=== PATIENT | female | born 1930 | race Caucasian/White ===

== ENCOUNTER 2020-03-20 23:02 | Inpatient (IN) | payer MEDICARE, OTHER ==
[~2020-03-20] VITALS: Ht 162.6 cm; Wt 52.6 kg
[~2020-03-20 23:02] MED LIST: ALEN70TA3 PO; ASPI-605 PO; CRAN450C PO; CYAN250T6 PO; ERGO400C PO; FOLI1TAB16 PO; GABA600T12 PO; LEVO50TA8 PO; MULT1TAB73 PO
[2020-03-20] MEDS ORDERED: IV NS 0.9% 1,000 ML BAG IV ONE (23:30)
[2020-03-20] MEDS ORDERED: ACETAMINOPHEN 650 MG/SUPP.RECT RC ONE ×2 (23:30→23:33)
[2020-03-20 23:31] LABS: BASOPHILS # (AUTO) 0.1 /CMM (0.0-0.2); BASOPHILS % (AUTO) 0.5 % (0.0-2.0); HEMATOCRIT 29 % (33-45); HEMOGLOBIN 9.4 g/dL (11.5-14.8); LYMPHOCYTES # (AUTO) 0.8 /CMM (0.8-4.8); LYMPHOCYTES % (AUTO) 4.6 % (20.0-44.0); MEAN CORPUSCULAR HGB CONC 32 g/dl (31.0-36.0); MEAN CORPUSCULAR VOLUME 93 fL (82-100); MONOCYTES # (AUTO) 0.8 /CMM (0.1-1.30); MONOCYTES % (AUTO) 4.4 % (2.0-12.0); NEUTROPHILS % (AUTO) 90.5 % (43.0-81.0); PLATELET COUNT (AUTO) 465 /CMM (150-450); RED BLOOD CELL COUNT(AUTO) 3.12 MIL/uL (4.0-5.2); WHITE BLOOD COUNT (AUTO) 17.7 K/uL (4.3-11.0)
--- NOTE | 2020-03-20 23:35 | NUR ---
PATIENT CAME TO ER BED 5 C/O FEVER. PATIENT IS BED BOUND AND AAOX0. PATIENT HAS NECROTIC TOES LEFT 1ST AND 2ND TOE; RIGHT 3RD, 4TD, AND 5TH TOES. BREATHING EVENLY AND UNLABORED ON 12 L OF FACE MASK. CONNECTED TO MONITOR.
[2020-03-20 23:41] LABS: APPEARANCE,URINE Clear (CLEAR); BILIRUBIN,URINE SMALL (NEGATIVE); BLOOD, URINE Small Ery/uL (NEGATIVE); COLOR,URINE Yellow (YELLOW); KETONES,URINE Negative (NEGATIVE); LEUKOCYTE ESTERASE ,URINE Small (NEGATIVE); NITRITE, URINE Negative (NEGATIVE); PROTEIN,URINE 100 mg/dl (NEGATIVE); UGLUCOSE Negative (NEGATIVE); UROBILINOGEN,URINE 0.2 EU/dL (0.2)
--- NOTE | 2020-03-20 23:41 | NUR ---
XRAY AT BEDSIDE.
--- NOTE | 2020-03-20 23:43 | NUR ---
STEAM HAND AT BEDSIDE TO COLLECT URINE, BLOOD, AND CORONAVIRUS SWAB.
[2020-03-20 23:55] LABS: ALANINE AMINOTRANSFERASE 20 U/L (12-78); ALBUMIN 1.9 g/dL (3.4-5.0); ALKALINE PHOSPHATASE 157 U/L (46-116); ASPARTATE AMINOTRANSFERASE 27 U/L (15-37); B-TYPE NATRIURETIC PEPTIDE 3249 PG/ML (0-125); BILIRUBIN,DIRECT 0.1 mg/dL (0.0-0.2); BILIRUBIN,TOTAL 0.3 mg/dL (0.2-1.0); CALCIUM, SERUM 9.4 mg/dL (8.5-10.1); CARBON DIOXIDE 29 mmol/L (21-32); CHLORIDE 110 mmol/L (98-107); CREATININE 1.8 mg/dL (0.6-1.3); GLUCOSE 210 mg/dL (74-106); POTASSIUM 4.1 mmol/L (3.5-5.1); SODIUM SERUM 149 mmol/L (136-145); TOTAL PROTEIN, SERUM 7.7 g/dL (6.4-8.2)
[2020-03-20 23:56] LABS: UREA NITROGEN, BLOOD 83 mg/dL (7-18)
[2020-03-21] VITALS (7 sets, daily range): BP systolic 99–135; BP diastolic 46–85
--- NOTE | 2020-03-21 | NUR ---
DR. SANCHEZ ON THE PHONE WITH PT'S FAMILY REGARDING PLAN OF CARE
[2020-03-21 00:25] LABS: BACTERIA,URINE Many /HPF (None Seen); SQUAMOUS EPITHELIAL CELL,UR Few /HPF (None Seen); WBC,URINE TOO NUMEROUS TO COUN /HPF (0-3)
[2020-03-21] MEDS ORDERED: VANCOMYCIN 1 GM in IV D5W 250 ML IV ONE (00:30)
[2020-03-21] MEDS ORDERED: PIPERACILLIN /TAZOBACTAM 3.375 G in IV D5W 50 ML IV ONE ×2 (00:30→06:00)
[2020-03-21] MEDS ORDERED: VANCOMYCIN 1 GM VIAL ONE (00:31)
[2020-03-21] MEDS ORDERED: PIPERACILLIN /TAZOBACTAM 3.375 G VIAL IV ONE ×2 (00:31→05:13)
--- NOTE | 2020-03-21 01:10 | NUR ---
NOTIFIED OF 102.1 RECTAL TEMPERATURE.
--- NOTE | 2020-03-21 01:25 | NUR ---
REPORT GIVEN TO LINDSEY WILLS FOR MARIA.
[2020-03-21] MEDS ORDERED: MORPHINE SULFATE INJ 2 MG/ML DISP.SYRIN IV PRN (01:30)
[2020-03-21] MEDS ORDERED: ACETAMINOPHEN 650 MG/SUPP.RECT RC PRN (01:30)
[2020-03-21] MEDS ORDERED: GABAPENTIN 300 MG CAPSULE PO SCH (01:30)
[2020-03-21] MEDS ORDERED: Z GUARD REMEDY 2 OZ OINT TP PRN (01:30)
[2020-03-21] MEDS ORDERED: ONDANSETRON HCL/PF 4 MG/2 ML VIAL IVP PRN (01:30)
[2020-03-21] MEDS ORDERED: ALENDRONATE 70 MG TABLET PO SCH (01:30)
--- NOTE | 2020-03-21 01:35 | NUR ---
FOOD TRADES ASSISTANTS NOTES PATIENT ARRIVED ON FLOOR AT 0135. PATIENT NONVERBAL. BREATHING EVEN AND UNLABORED ON FACE MASK 12L. SHOWS NO SIGNS OF ACUTE RESPIRATORY DISTRESS, NO ACUTE PAIN. IV ON R HAND 20G ITS CLEAN DRY AND INTACT. SHOW NO SIGNS OF INFILTRATION, NO REDNESS. BELONGINGS CHECKLIST COMPLETED, AND SKIN ASSESSMENT DONE. SAFETY PRECAUTIONS IN PLACE. BED IN LOWEST POSITION, LOCKED, AND CALL LIGHT KEPT WITHIN REACH. WILL CONTINUE TO MONITOR.
[2020-03-21 02:45] LABS: C-REACTIVE PROTEIN 44.9 mg/dL (0.0-0.9)
--- NOTE | 2020-03-21 06:37 | NUR ---
CUSTOMS AND BORDER PROTECTION INSPECTOR NOTES PATIENT NONVERBAL. BREATHING EVEN AND UNLABORED ON FACE MASK 12L. SHOWS NO SIGNS OF ACUTE RESPIRATORY DISTRESS, NO ACUTE PAIN. IV ON R HAND 20G ITS CLEAN DRY AND INTACT. SHOW NO SIGNS OF INFILTRATION, NO REDNESS. TELE MONITOR AFIB. FC IS CLEAN DRY AND INTACT, 400ML OUTPUT. GTUBE IS CLEAN DRY AND INTACT. ALL DUE MEDICATIONS GIVEN. PT KEPT NPO. SAFETY PRECAUTIONS IN PLACE. BED IN LOWEST POSITION, LOCKED, AND CALL LIGHT KEPT WITHIN REACH. WILL ENDORSE TO ONCOMING NURSE.
[2020-03-21 06:47] LABS: BASOPHILS % (AUTO) 0.1 % (0.0-2.0); HEMATOCRIT 28 % (33-45); HEMOGLOBIN 8.9 g/dL (11.5-14.8); LYMPHOCYTES # (AUTO) 1.1 /CMM (0.8-4.8); LYMPHOCYTES % (AUTO) 5.9 % (20.0-44.0); MEAN CORPUSCULAR HGB CONC 32 g/dl (31.0-36.0); MEAN CORPUSCULAR VOLUME 93 fL (82-100); MONOCYTES # (AUTO) 0.9 /CMM (0.1-1.30); MONOCYTES % (AUTO) 4.7 % (2.0-12.0); NEUTROPHILS # (AUTO) 16.2 /CMM (1.8-8.9); NEUTROPHILS % (AUTO) 89.3 % (43.0-81.0); PLATELET COUNT (AUTO) 402 /CMM (150-450); RED BLOOD CELL COUNT(AUTO) 3.03 MIL/uL (4.0-5.2); WHITE BLOOD COUNT (AUTO) 18.2 K/uL (4.3-11.0)
[2020-03-21] MEDS ORDERED: LEVOTHYROXINE SODIUM 50 MCG TABLET PO SCH (07:00)
--- NOTE | 2020-03-21 07:13 | NUR ---
BLADDER TRIMMER NOTES CRITICAL LAB 2.5 LACTIC ACID. ENDORSED TO MORNING RN.
[2020-03-21 07:21] LABS: CALCIUM, SERUM 8.8 mg/dL (8.5-10.1); CARBON DIOXIDE 27 mmol/L (21-32); CHLORIDE 114 mmol/L (98-107); CREATININE 1.6 mg/dL (0.6-1.3); GLUCOSE 212 mg/dL (74-106); MAGNESIUM 2.5 mg/dL (1.8-2.4); PHOSPHORUS 2.7 mg/dL (2.5-4.9); POTASSIUM 3.7 mmol/L (3.5-5.1); SODIUM SERUM 153 mmol/L (136-145)
[2020-03-21] MEDS ORDERED: FEE PK DOSING 1 MIN EA MC ONE (07:25)
--- NOTE | 2020-03-21 07:30 | NUR ---
MS/RN OPENING NOTES RECEIVED PATIENT SLEEPING ON BED BUT EASILY AROUSABLE. PATIENT DENIES PAIN AT THIS TIME. PATIENT IN NO APPARENT DISTRESS AT THIS TIME. PATIENT IS ON MASK O2 AT 12L ORDER. IV ACCESS AT LEFT HAND # 20G PATENT AND INTACT. PATIENT IS ON NPO, NO GTUBE FLUSHING PER NIGHT RN DUE TO MIGHT HAVE BLEEDING IN STOMACH. BED IN LOWEST POSITION, SIDE RAILS UP X2. CALL LIGHT WITHIN REACH. WILL CONTINUE TO MONITOR.
[2020-03-21 07:32] LABS: UREA NITROGEN, BLOOD 80 mg/dL (7-18)
[2020-03-21 07:33] LABS: IRON, SERUM 12 ug/dl (50-175); TOTAL IRON BINDING CAPACITY 119 ug/dl (250-450)
[2020-03-21 07:39] LABS: CHOLESTEROL 60 mg/dL (<200); HDL CHOLESTEROL 21 mg/dL (40-60); LDL 15 mg/dL (0-99); TRIGLYCERIDES 82 mg/dL (30-150)
[2020-03-21] MEDS ORDERED: IV 1/2NS 1000 ML 1,000 ML IV PRN (07:52)
[2020-03-21] MEDS: IV NS 0.9% 1,000 ML IV SCH ×3 (08:50→21:03)
[2020-03-21] MEDS: PANTOPRAZOLE 40 MG VIAL IV SCH ×2 (08:52→17:14)
--- NOTE | 2020-03-21 08:58 | NUR ---
WOUND CARE CONSULT: REVIEWED CHART, NURSING DOCUMENTATION AND PHOTOS WHICH SHOW MULTIPLE AREAS OF BLACK NECROTIC TISSUE TO FEET AND LOWER LEGS WELL INTACT DEEP TISSUE INJURIES TO BACK AND SACRAL AREA WITH SCARRING, PRESENT ON AMISSION. RECOMMENDATIONS MADE FOR SKIN PROTECTION. RECOMMEND DPM CONSULT. DR BRUNO NOTIFIED OF CONSULT REQUEST. FIRST STEP LOW AIRLOSS MATTRESS ON ORDER. CURRENT ROSS SCORE IS 11. MD IN AGREEMENT WITH PLAN OF CARE. WILL SEE PRN.
[2020-03-21] MEDS ORDERED: MULTIVITAMINS,THERAGRAN 1 UDTAB TABLET PO SCH (09:00)
[2020-03-21] MEDS ORDERED: CRANBERRY EXT/C/L. SPOROGENES 405 MG/TAB TABLET PO SCH ×2 (09:00)
[2020-03-21] MEDS ORDERED: ENOXAPARIN SODIUM 30 MG/0.3 ML DISP.SYRIN SQ SCH (09:00)
[2020-03-21] MEDS ORDERED: FOLIC ACID 1 MG TABLET PO SCH (09:00)
[2020-03-21] MEDS ORDERED: CHOLECALCIFEROL (VITAMIN D 3) 400 UNIT TABLET PO SCH (09:00)
--- NOTE | 2020-03-21 09:12 | NUR ---
TELE/RN NOTES PATIENT MIGHT HAVE BLEEDING IN THE STOMACH, NO FLUSHING, NO GTUBE MEDS PER REPORT BY LINDSEY (NIGHT RN), WAIT FOR MD TO CHECK PATIENT.
[2020-03-21] MEDS: PIPERACILLIN /TAZOBACTAM 3.375 G in IV D5W 100 ML IV SCH ×2 (09:33→21:03)
--- NOTE | 2020-03-21 10:44 | NUR ---
TELE/RN NOTES DR. SARGENT ORDER ABG STAT NOTED AND CARRIED OUT.
--- NOTE | 2020-03-21 11:00 | NUR ---
TELE/RN NOTES DR. SARGENT ORDER TO TITRATE THE 12L OXYGEN VIA MASK TO 6L OXYGEN VIA NASAL CANNULA NOTED AND CARRIED OUT.
[2020-03-21] MEDS ORDERED: PIPERACILLIN /TAZOBACTAM 3.375 G in IV D5W 50 ML IV SCH (12:00)
--- NOTE | 2020-03-21 12:01 | NUR ---
manager of creative services consult requested by Wound RN Dayana due to pt. having multiple pressure ulcers. Per MD note and chart review, pt is a 89-year-old female who presented to the emergency department from home for fever and altered mental status. Apparently per EMS report the patient was initially a hospice patient which the family reversed. She started having fever and was altered today and subsequently they called EMS. Upon their arrival they also noted that the patient had vomited. The patient is altered and subsequently unable to obtain any history. Pt has a medical history of Dementia and Stroke. Pt is altered and non-verbal. PROSTHETIC AIDES TEACHER contacted pt's daughter Shira and introduced self and purpose of the call. Per Shira, pt's son Otoniel Matos is the conservator for the pt. PROSTHETIC AIDES TEACHER contacted Otoniel , introduced self, explained the role of the SW and purpose of the call. Per Otoniel, he lives with the pt in her home located at [address] [place] [address] in [place]. Pt was on hospice a year ago which the family reversed. Per Otoniel, pt was again placed on hospice for a day and family once again reversed the decision. Pt receives 283 hours of IHSS per month. Pt's IHSS worker is Dolores who provides care 6 to 7 days a week for up to 8 or 9 hours per day. Pt is non-ambulatory and wheelchair bound. Pt is incontinent and wears diapers. Pt has a commode that Otoniel states, pt uses as a shower chair. Pt is currently receiving home health services through [facility]. Per Otoniel, a [facility] and nurse come a few days a week from the home health agency. Pt has a vascular doctor as well. Otoniel takes the pt to all of her doctor appointments. Meals are prepared by the caregiver. Pt is dependent for all of her ADLS and IADLS. Pt has a daughter Shira that is involved. Otoniel to send [facility] copies of [employer] via email. PROSTHETIC AIDES TEACHER provided active listening, supportive counseling and validation of feelings. manager of creative services is available, as needed. [facility] updated rifle case repairer Cherry with aforementioned information.
[2020-03-21 13:04] LABS: ABG OXYGEN SATURATION 98.6 % (92.0-98.5); ABG PCO2 30.6 mmHg (35.0-45.0); ABG PH 7.523 (7.350-7.450); ABG PO2 148.6 mmHg (75.0-100.0); AaDO2 173.5 mmHg; COHb 0.4 % (0.5-1.5); MetHb 0.3 % (0.0-1.5); O2Hb 97.9 % (94.0-97.0); SITE, ABG Right Radial; VENT MODE, BG SM 10L
--- NOTE | 2020-03-21 13:42 | NUR ---
DRUG AND ALCOHOL COUNSELOR received a call from pt's son/conservator informing SW he faxed the conservatorship document. DRUG AND ALCOHOL COUNSELOR confirmed receipt of the faxed copy and faxed it to SALVADOR Broussard to place in pt's chart.
[2020-03-21] MEDS ORDERED: SOD FERRIC GLUC 125 MG in IV NS 0.9% 100 ML IV SCH (14:00)
--- NOTE | 2020-03-21 15:58 | NUR ---
TELE/RN NOTES DOCTOR LUCILLE TELEPHONE ORDER TO FLUSH THE GTUBE WITH 60CC TO 100 CC OF SALINE/WATER NOTED AND CARRIED OUT.
[2020-03-21 17:38] LABS: APPEARANCE,URINE CLOUDY (CLEAR); BILIRUBIN,URINE NEGATIVE (NEGATIVE); BLOOD, URINE SMALL Ery/uL (NEGATIVE); COLOR,URINE YELLOW (YELLOW); KETONES,URINE NEGATIVE (NEGATIVE); LEUKOCYTE ESTERASE ,URINE LARGE (NEGATIVE); NITRITE, URINE NEGATIVE (NEGATIVE); PH,URINE 5.5 (5.0-8.0); PROTEIN,URINE 30 mg/dl (NEGATIVE); UGLUCOSE NEGATIVE (NEGATIVE); UROBILINOGEN,URINE 0.2 EU/dL (0.2)
[2020-03-21 17:42] LABS: CREATININE, URINE 58.3 MG/DL (30.0-125.0); URINE TOTAL PROTEIN 75.9 mg/dL (0-11.9)
--- NOTE | 2020-03-21 17:42 | NUR ---
TELE/RN NOTES GTUBE OUTPUT IS YELLOWISH CLOUDY COLOR AFTER GTUBE FLUSHING MD AND CHARGE NURSE IS AWARE. MD ORDER TO CONTINUE G TUBE FEEDING, WAITING FOR FEEDING ORDER.
[2020-03-21 17:55] LABS: BACTERIA,URINE 3+ /HPF (None Seen); WBC,URINE 81-100 /HPF (0-3)
[2020-03-21 17:59] LABS: EOSINOPHIL,URINE None Seen
--- NOTE | 2020-03-21 18:07 | NUR ---
TELE/RN NOTES MONTY BIRD ORDER JUST CONTINUE THE FEEDING FROM HOME NOTED AND CARRIED OUT.
[2020-03-21] MEDS ORDERED: JEVITY 1.2 CAL 1,000 ML BOTTLE GT PRN (18:30)
--- NOTE | 2020-03-21 18:37 | NUR ---
TELE/RN NOTES PATIENT IS ALERT AND ORIENTED X1. PATIENT IN NO APPARENT DISTRESS NOTED. PATIENT NO SIGN AND SYMPTOM OF PAIN NOTED. PATIENT IN 6L NASAL CANNULA ORDER AND TOLERATED WELL. RESPIRATION REGULAR AND UNLABORED. IV ACCESS PATENT AND INTACT. IV FLUID OF NS 1L AT 200ML/HR ON A 2ND BAG. KEPT PATIENT CLEAN AND DRY THE WHOLE SHIFT.PATIENT IS ON AIR BED MATTRESS ORDER. ALL DUE MEDICATION WAS GIVEN. SEEN AND EXAMINED BY MD WITH ORDERS MADE AND CARRIED OUT. BED IN LOWEST POSITION AND LOCKED, SIDE RAILS UP X 2. CALL LIGHT WITH IN REACH. WILL ENDORSED TO ROUTEMAN FOR MARIA.
--- NOTE | 2020-03-21 19:15 | NUR ---
TELE/RN PM OPENING NOTE REPORT RECIEVED FROM CHIQUIS WILLS. PATIENT IS A/O X1. BED BOUND PATIENT SEEN NO APPARENT DISTRESS RESP EVEN AND UNLABORED ON NC 5LITERS. PATIENT IN NO APPARENT PAIN. RESPIRATION REGULAR AND UNLABORED. IV ACCESS PATENT AND INTACT. IV FLUID OF NS 1L AT 200ML/HR ON A 2ND BAG STILL INFUSING PER REPORT ONE BAG IS PENDING TO BE HUNG WHEN THAT FINISHES. PATIENT IS ON AIR BED MATTRESS ORDER. BED IN LOW LOCKED POSITION, SIDE RAILS UP X 2. CALL LIGHT WITH IN REACH. PATIENT IS AFIB ON THE MONITOR AT 106. WILL CONT TO MONITOR.
--- NOTE | 2020-03-21 21:24 | NUR ---
TYELENOL ADMINSTERED ORDERED PATIENT APPEARS TO BE IN MINOR PAIN WITH FLACC SCORE OF 3. PT GROANING WITH FACIAL GRIMACING. BODY APPEARS RESTFUL NON TENSE.
[2020-03-21] MEDS ORDERED: HYDROCODONE/APAP 5/325MG 1 EACH TABLET PO PRN (23:30)
--- NOTE | 2020-03-21 23:38 | NUR ---
PAIN MANAGEMENT; EPIC CONTACTED. CONTACTED TANJA PAYROLL ACCOUNTING CLERK FOR [facility] DNP INFORMED PATIENT IN APPARENT PAIN FLACC OF 4 PATIENT MOANING. NEW ORDER FOR NORCO 5/325 MG GIVEN PER GTUBE. IF PATIENT DOES NOT HAVE RELIEF AFTER 30 MINUTES THEN OK TO GIVE ONE MORE DOSE.
[2020-03-22 00:20] VITALS: BP 90/42
--- NOTE | 2020-03-22 01:28 | NUR ---
norco effective. patient still awake but is in less distress. stopped moaning. occasional facial grimace. flacc scale of 2. will cont to monitor.
[2020-03-22] MEDS ORDERED: VANCOMYCIN 500 MG in IV D5W 100 ML IV SCH (02:00)
[2020-03-22 02:20] VITALS: BP 131/67
--- NOTE | 2020-03-22 02:22 | NUR ---
OXYGEN DESATURATION; FACE MASK REAPPLIED. FACE MASK APPLIED 10 LITERS. PATIENT SPO2 FOUND TO BE IN HIGH 80'S NUMBERS MIGHT BE OFF DUE TO PATIENTS POOR CIRCULATION. MACHINE ON 5LNC STATES 95 THEN DROPS TO LOW 80'S. FACE MASK APPLIED AND READING AT CONSISTANT 92% WILL CONT TO MONITOR. HR DOWN BELOW 110'S.
[2020-03-22 04:35] VITALS: BP 64/33
--- NOTE | 2020-03-22 04:35 | NUR ---
patient found to be hypotensive with bp 63/42 spo2 difficult to read with rating from 96% to 85% on 10 liter face mask. german contacted informed of patient condition and status of dnr/dni new orders recieved. for one liter bolus and lactic to be added to am labs.
[2020-03-22 04:45] VITALS: BP 90/46
--- NOTE | 2020-03-22 04:45 | NUR ---
ns bolus inittiated pt heart rate in the 80's bp now reads 90/46 non rebreather mask applied rr of 24. spo2 still reading in low 80's.
--- NOTE | 2020-03-22 04:55 | NUR ---
patient heart rate dropped to 30's breathing has become very shallow. heart rate dropped to asystole pulse could not be felt. respiratory rate stopped.
[2020-03-22] MEDS ORDERED: IV NS 0.9% 1,000 ML IV ONE (05:00)
--- NOTE | 2020-03-22 05:00 | NUR ---
Patient still in asystole. myself and ahmet hollidayhr intern. confirmed no heart rate present per auscultation., no bp registering no heart rate per surveillance system monitor. patient dnr /dni. german evans notified of patient passing. call made to dk (son) message left to call hospital back. contact made with daughter Shira Douglas informed of mother passing. states she wishes to visit patient at 5am
--- NOTE | 2020-03-22 05:15 | NUR ---
telephone installer notes post mortem done
--- NOTE | 2020-03-22 05:55 | NUR ---
Daughter Shira Misael in to see the patient with family. belongings of returned to patient. per covid precreacautions as patient still r/o family not allowed to enter room. verbalized understanding state she will call brother dk to let him know.
== END 2020-03-22 05:00 | disposition expired | DRG 871 ==
LOC: ER 23:02 → TELE1 03-21 01:13
PROVIDERS: ADMIT Nurse Practitioner Acute Care; ATTEND Nurse Practitioner Acute Care
DX: A41.9 Sepsis, unspecified organism (principal); N17.0 Acute kidney failure with tubular necrosis; E43 Unspecified severe protein-calorie malnutrition; G92 Toxic encephalopathy; N39.0 Urinary tract infection, site not specified; E11.52 Type 2 diabetes mellitus with diabetic peripheral angiopathy with gangrene; K92.2 Gastrointestinal hemorrhage, unspecified; E87.0 Hyperosmolality and hypernatremia; E87.2 Acidosis; D68.9 Coagulation defect, unspecified; J98.11 Atelectasis; R47.01 Aphasia; F03.90 Unspecified dementia, unspecified severity, without behavioral disturbance, psychotic disturbance, mood disturbance, and anxiety; Z66 Do not resuscitate; Z79.82 Long term (current) use of aspirin; Z79.899 Other long term (current) drug therapy; Z79.83 Long term (current) use of bisphosphonates; E11.22 Type 2 diabetes mellitus with diabetic chronic kidney disease; N18.9 Chronic kidney disease, unspecified; R65.20 Severe sepsis without septic shock; D50.9 Iron deficiency anemia, unspecified; F09 Unspecified mental disorder due to known physiological condition; E11.51 Type 2 diabetes mellitus with diabetic peripheral angiopathy without gangrene; E11.21 Type 2 diabetes mellitus with diabetic nephropathy; D63.8 Anemia in other chronic diseases classified elsewhere; E03.9 Hypothyroidism, unspecified; E86.0 Dehydration; I12.9 Hypertensive chronic kidney disease with stage 1 through stage 4 chronic kidney disease, or unspecified chronic kidney disease; Z86.73 Personal history of transient ischemic attack (TIA), and cerebral infarction without residual deficits; H91.10 Presbycusis, unspecified ear; M81.0 Age-related osteoporosis without current pathological fracture
CPT/HCPCS: 36415; 36600; 71045-TC; 80048-TC; 80061-TC; 80076-TC; 81000-TC; 82550-TC; 82570-TC; 82728-TC; 83540-TC; 83605-TC; 83735-TC; 83880; 83935-TC; 84100-TC; 84155-TC; 84300-TC; 84443-TC; 84484-TC; 85025-TC; 85378-TC; 85730-TC; 86140-TC; 86850-TC; 87040-TC; 87081-TC; 87086-TC; 87186-TC; A4217; C9113; G0378; J1650; J2543; J2916; J3370; J7030; J7050; J7060